=== PATIENT | male | born 1955 | race Caucasian/White ===

== ENCOUNTER → 2019-09-28 | Outpatient (CLI) | payer OTHER ==
--- NOTE | 2019-09-28 13:04 | RADIOLOGY REPORT (SQ) ---
EXAM DESCRIPTION: C SP 4 OR 5 VIEWS COMPLETED DATE/TIME: 09/28/2019 12:31 pm REASON FOR STUDY: NECK PAIN;LUMBAR BACK PAIN M54.5 LOW BACK PAIN COMPARISON: None. NUMBER OF VIEWS: Five views. TECHNIQUE: AP, lateral, obliques and odontoid radiographic images acquired of the cervical spine. LIMITATIONS: None. FINDINGS: MINERALIZATION: Normal. ALIGNMENT: Anatomic. VERTEBRAE: Vertebral bodies of normal height. DISCS: Minimal narrowing at C4-5, C5-6, and C6-7 with marginal osteophytes. FORAMINA: There is mild foraminal narrowing at C4-5 and C5-6 bilaterally. LATERAL AND POSTERIOR ELEMENTS: Hypertrophic facet changes are present bilaterally, right more than l eft. HARDWARE: None in the spine. SOFT TISSUES: No masses or calcifications. Lung apices clear. OTHER: No other significant finding. IMPRESSION: Degenerative disc disease, spondylosis, and facet arthropathy. TECHNICAL DOCUMENTATION: JOB ID: [id number] 2010 [employer]- All Rights Reserved Reading location - IP/workstation name: [email or web address]
--- NOTE | 2019-09-28 13:06 | RADIOLOGY REPORT (SQ) ---
EXAM DESCRIPTION: LUMBAR SPINE COMPLETE COMPLETED DATE/TIME: 09/28/2019 12:31 pm REASON FOR STUDY: NECK PAIN;LUMBAR BACK PAIN M54.5 LOW BACK PAIN COMPARISON: None. NUMBER OF VIEWS: Five views including obliques. TECHNIQUE: AP, lateral, oblique, and sacral radiographic images acquired of the lumbar spine. LIMITATIONS: None. FINDINGS: MINERALIZATION: Normal. SEGMENTATION: Normal. No transitional anatomy. ALIGNMENT: Normal. VERTEBRAE: Maintained height. No fracture or worrisome bone lesion. DISCS: Mild disc narrowing at L2-3, L4-5, and L5-S1. Small marginal osteophytes at L2-3. POSTERIOR ELEMENTS: Hypertrophic facet changes from L4-S1. HARDWARE: None in the spine. PARASPINAL SOFT TISSUES: Normal. PELVIS: Intact as visualized. No fractures or worrisome bone lesions. SI joints intact. OTHER: No other significant finding. IMPRESSION: Degenerative disc disease. Spondylosis. Facet arthropathy. TECHNICAL DOCUMENTATION: JOB ID: [id number] 2010 [employer]- All Rights Reserved Reading location - IP/workstation name: [email or web address]
== END ==
LOC: OD 12:04
PROVIDERS: ATTEND Nurse Practitioner Family
DX: M54.5 Low back pain (principal)
CPT/HCPCS: 72050; 72110

== ENCOUNTER 2020-05-22 08:54 | Emergency (ER) | payer OTHER ==
[2020-05-22] MEDS ORDERED: ADENOSINE INJ/PF 6 MG/2 ML SDV IV ONE (09:11)
[2020-05-22] MEDS ORDERED: METOPROLOL TARTRATE PF/INJ 5 MG/5 ML SDV IV ONE (09:16)
[2020-05-22] MEDS ORDERED: NORMAL SALINE 1000 ML 1,000 ML IV ONE (09:17)
[2020-05-22 09:41] LABS: ABSOLUTE LYMPHOCYTES (AUTO) 1.8 10^3/uL (0.5-4.7); ABSOLUTE MONOCYTES (AUTO) 0.6 10^3/uL (0.1-1.4); BASOPHILS % (AUTO) 0.4 % (0-2); EOSINOPHILS % (AUTO) 0.3 % (0-6); HEMOGLOBIN 17.8 g/dL (13.5-17.0); LYMPHOCYTES % (AUTO) 21.7 % (13-45); MEAN CORPUSCULAR HEMOGLOBIN 33.1 pg (27.0-33.4); MEAN CORPUSCULAR HGB CONC 36.4 g/dL (32.0-36.0); MEAN CORPUSCULAR VOLUME 91 fl (80-97); MONOCYTES % (AUTO) 6.8 % (3-13); PLATELET COUNT 152 10^3/uL (150-450); RED BLOOD COUNT 5.39 10^6/uL (4.35-5.55); RED CELL DISTRIBUTION WIDTH 13.5 % (11.5-14.0); SEGMENTED NEUTROPHILS % (AUTO) 70.8 % (42-78); TOTAL CELLS COUNTED % (AUTO) 100 %; WHITE BLOOD COUNT 8.5 10^3/uL (4.0-10.5)
[2020-05-22 10:20] LABS: ALBUMIN 4.6 g/dL (3.5-5.0); ALKALINE PHOSPHATASE 107 U/L (38-126); ANION GAP 16 (5-19); ASPARTATE AMINO TRANSFERASE 29 U/L (17-59); BILIRUBIN,DIRECT 0.1 mg/dL (0.0-0.4); BILIRUBIN,TOTAL 2.9 mg/dL (0.2-1.3); BLOOD UREA NITROGEN 18 mg/dL (7-20); CALCIUM 9.5 mg/dL (8.4-10.2); CARBON DIOXIDE 20 mmol/L (22-30); CHLORIDE 101 mmol/L (98-107); GLUCOSE 287 mg/dL (75-110); POTASSIUM 4.1 mmol/L (3.6-5.0); TOTAL PROTEIN 7.7 g/dL (6.3-8.2)
[2020-05-22 10:50] VITALS: BP 125/84
--- NOTE | 2020-05-22 10:55 | ER Document Report ---
ED General - General Chief Complaint: fast heart rate Stated Complaint: PALPITATIONS Time Seen by Provider: 05/22/20 09:13 Primary Care Provider: AMERICO SALVADOR FNP [Primary Care Provider] - Follow up as needed Mode of Arrival: Ambulatory Information source: Patient - [facility] Notes: Patient arrives complaint of palpitations. He states he was at a clinic today for the palpitations and when they did an EKG and saw his heart rate was elevated this and here to emergency department. He states these palpitations have been relatively constant for the last month. He has been having some mild shortness of breath. No pain. He states that they seem to be worse with exertion and better with rest. They have been constant and moderate in intensity. No vomiting or diarrhea. No cough cold or congestion. No previous history of cardiac disease. - Related Data Allergies/Adverse Reactions: codeine Allergy (Verified 05/22/20 09:43) Home Medications: lisinopril. metformin. atrovastatin. lorazepam Past Medical History - General Information source: Patient - Social History Smoking Status: Former Smoker Frequency of alcohol use: Occasional Drug Abuse: None Family History: Reviewed & Not Pertinent - Past Medical History Cardiac Medical History: Reports: Hx Hypercholesterolemia, Hx Hypertension Endocrine Medical History: Reports: Hx Diabetes Mellitus Type 2 Past Surgical History: Reports: Hx Orthopedic Surgery - knee, Hx Tonsillectomy Review of Systems - Review of Systems Constitutional: denies: Chills, Fever Cardiovascular: Palpitations. denies: Chest pain Respiratory: Short of breath. denies: Cough -: Yes All other systems reviewed and negative Physical Exam - Vital signs Vitals: Resp 20 05/22/20 09:12 Interpretation: Normal - General General appearance: Appears well, Alert - HEENT Head: Normocephalic, Atraumatic Eyes: Normal Pupils: PERRL - Respiratory Respiratory status: No respiratory distress Chest status: Nontender Breath sounds: Normal Chest palpation: Normal - Cardiovascular Rhythm: Regular, Tachycardia Heart sounds: Normal auscultation Murmur: No - Abdominal Inspection: Normal Distension: No distension Bowel sounds: Normal Tenderness: Nontender Organomegaly: No organomegaly - Back Back: Normal, Nontender - Extremities General upper extremity: Normal inspection, Nontender, Normal color, Normal ROM, Normal temperature General lower extremity: Normal inspection, Nontender, Normal color, Normal ROM, Normal temperature, Normal weight bearing. No: Vita's sign - Neurological Neuro grossly intact: Yes Cognition: Normal Orientation: AAOx4 Avant Coma Scale Eye Opening: Spontaneous Mehdi Coma Scale Verbal: Oriented Avant Coma Scale Motor: Obeys Commands Avant Coma Scale Total: 15 Speech: Normal Motor strength normal: LUE, RUE, LLE, RLE Sensory: Normal - Psychological Associated symptoms: Normal affect, Normal mood - Skin Skin Temperature: Warm Skin Moisture: Dry Skin Color: Normal Course - Re-evaluation Re-evalutation: 05/22/20 10:56 05/22/20 10:50 Patient presents in flutter but otherwise stable vital signs. Blood pressure was normal. Patient was relatively asymptomatic other than the palpitations. 1 dose of metoprolol converted the patient to a sinus rhythm. His blood pressure has remained stable since. I have called and discussed the case with the it infrastructure manager, Dr. Wilkerson. He will follow up the patient in the office. There is also noted that patient has hyperglycemia. He will be started on some Metformin and referred to primary care. Dr. Wilkerson is also requested that the patient be started on Eliquis. - Vital Signs Vital signs: Temp Pulse Resp BP Pulse Ox 15 156/83 H 97 05/22/20 09:13 05/22/20 09:13 05/22/20 09:13 - Laboratory Result Diagrams: 05/22/20 09:17 05/22/20 09:17 Laboratory results interpreted by me: 05/22/20 05/22/20 09:17 09:17 Hgb 17.8 H MCHC 36.4 H Sodium 136.8 L Carbon Dioxide 20 L Glucose 287 H Total Bilirubin 2.9 H ALT 55 H - Diagnostic Test Radiology reviewed: Image reviewed, Reports reviewed - EKG Interpretation by Me Rate: Tachycardia - 157 Rhythm: A.Flutter [place]/QRS: No: Right axis deviation, Left axis deviation Additional EKG results interpreted by me: 05/22/20 10:48 Repeat EKG was done at approximately 9:34 AM. The repeat EKG shows patient to have a sinus rhythm with some premature atrial beats. Patient's rate is 94. There is a change from the previous EKG that was done at 9:01 AM and that patient is no longer in a sustained flutter. Patient has a normal axis. Procedures - Additional Procedures Cardioversion/Defib Time performed: 09:01 Additional Procedures: Cardioversion/defib Notes: 05/22/20 10:56 Patient was chemically cardioverted with metoprolol. Discharge - Discharge Clinical Impression: Atrial flutter with rapid ventricular response, Hyperglycemia Condition: Stable Disposition: HOME, SELF-CARE Instructions: Beta Blockers ([facility]), Palpitations (Irregular or Rapid Heartrate) ([facility]) Additional Instructions: Do not take anymore Lisinopril Please follow up with your primary doctor as soon as possible. Prescriptions: Apixaban [Eliquis 5 mg Tablet] 5 mg PO BID 30 Days #50 tablet Metoprolol Tartrate [Lopressor 25 mg Tablet] 25 mg PO BID 30 Days #60 tab Forms: Return to Work Referrals: AMERICO SALVADOR FNP [Primary Care Provider] - Follow up in 3-5 days CHERRY WILKERSON MD [ACTIVE STAFF] - Follow up in 1 week (Dr. Wilkerson's office will call you)
--- NOTE | 2020-05-22 17:44 | EKG REPORT ---
SEVERITY:- ABNORMAL ECG - SINUS rHYTHM FREQUENT ATRIAL PREMATURE COMPLEXES CONSIDER ANTERIOR INFARCT ST ELEVATION SUGGESTS PERICARDITIS : Confirmed by: Mercedez Sauer 22-May-2020 17:44:08
--- NOTE | 2020-05-22 17:45 | EKG REPORT ---
SEVERITY:- ABNORMAL ECG - SUPRAVENTRICULAR TACHYCARDIA CONSIDER A FLUTTER WITH 2;1 CONDUCTION LEFT ANTERIOR FASCICULAR BLOCK MINIMAL ST DEPRESSION, INFERIOR LEADS : Confirmed by: Mercedez Sauer 22-May-2020 17:44:59
--- OUTSIDE RECORDS SUMMARY | 2020-05-23 18:27 | XMS REPORT ---
:1955 [facility] [address] [place] [id number] Care Team Providers Name Role Phone Chiki Carvajal Attending Clinician Unavailable Allergies, Adverse Reactions, Alerts This patient has no known allergies or adverse reactions. Medications This patient has no known medications. Problems This patient has no known problems. Procedures Procedure Date / Time Performed Performing Clinician Devic e OFFICE/OUTPATIENT VISIT EST 2020-01-02 09:00:00 OFFICE/OUTPATIENT VISIT NEW 2019-09-28 10:30:00 Results Test Description Test Time Test Comments Text Results Atomic Results Result Comments CBC (INCLUDES DIFF/PLT) 2020-01-02 10:22:00 Test Item Value Reference Range Comments ABSOLUTE BASOPHILS (test code = 75930014) 37 cells/uL 0-200 MPV (test code = 35015032) 9.7 fL 7.5-12.5 EOSINOPHILS (test code = 00905579) 0.5 % ABSOLUTE EOSINOPHILS (test code = 66608529) 31 cells/uL 15-5 00 RED BLOOD CELL COUNT (test code = 44267110) 4.96 Million/uL 4.20 -5.80 ABSOLUTE NEUTROPHILS (test code = 37497601) 4104 cells/uL 1500 -7800 PLATELET COUNT (test code = 62242176) 160 Thousand/uL 140-400 RDW (test code = 84575204) 13.3 % 11.0-15.0 MCV (test code = 79264502) 94.2 fL 80.0-100.0 MCHC (test code = 45288969) 35.5 g/dL 32.0-36.0 ABSOLUTE MONOCYTES (test code = 02633793) 477 cells/uL 200-95 0 WHITE BLOOD CELL COUNT (test code = 24505807) 6.2 Thousand/uL 3. 8-10.8 BASOPHILS (test code = 98038868) 0.6 % HEMATOCRIT (test code = 70070469) 46.7 % 38.5-50.0 ABSOLUTE LYMPHOCYTES (test code = 59081437) 1550 cells/uL 850- 3900 MONOCYTES (test code = 77967505) 7.7 % LYMPHOCYTES (test code = 12245937) 25.0 % MCH (test code = 48825348) 33.5 pg 27.0-33.0 NEUTROPHILS (test code = 97971473) 66.2 % HEMOGLOBIN (test code = 37175104) 16.6 g/dL 13.2-17.1 Hemoglobin A1C\S\2020-01-02 09:00:00 Test Item Value Reference Range Comments HgbA1C, Fingerstick (test code = 4548-4) 7.4 % 4-5.6 COMPREHENSIVE METABOLIC [id number] 08:39:00 Test Item Value Reference Range Comments ALKALINE PHOSPHATASE (test code = 101 U/L 35-144 27470943) UREA NITROGEN (BUN) (test code = 17 mg/dL 7-25 10636745) CHLORIDE (test code = 65191152) 99 mmol/L 98-110 ALT (test code = 93463232) 26 U/L 9-46 GLOBULIN (test code = 18138786) 2.4 g/dL (calc) 1.9-3.7 ALBUMIN/GLOBULIN RATIO (test code = 1.8 (calc) 1.0-2.5 75537340) CREATININE (test code = 87150238) 0.98 mg/dL 0.70-1.25 CARBON DIOXIDE (test code = 47068973) 25 mmol/L 20-32 BILIRUBIN, TOTAL (test code = 2.3 mg/dL 0.2-1.2 37983667) eGFR (test code = 93 mL/min/1.73m2 > OR = 60 10838148) GLUCOSE (test code = 07102922) 320 mg/dL 65-99 CALCIUM (test code = 43399761) 9.6 mg/dL 8.6-10.3 eGFR NON-AFR. YEMENI (test code = 81 mL/min/1.73m2 > OR = 60 58697401) ALBUMIN (test code = 65078476) 4.2 g/dL 3.6-5.1 PROTEIN, TOTAL (test code = 66891108) 6.6 g/dL 6.1-8.1 POTASSIUM (test code = 40676637) 3.8 mmol/L 3.5-5.3 AST (test code = 13245382) 12 U/L 10-35 SODIUM (test code = 52932105) 134 mmol/L 135-146 BUN/CREATININE RATIO (test code = NOT APPLICABLE (calc) 6-22 32221195) LIPID PANEL, [id number] 08:39:00 Test Item Value Reference Range Comments CHOL/HDLC RATIO (test code = 68295272) 5.4 (calc) <5.0 HDL CHOLESTEROL (test code = 10234368) 32 mg/dL > OR = 40 NON HDL CHOLESTEROL (test code = 34323763) 140 mg/dL (calc) <130 CHOLESTEROL, TOTAL (test code = 01582200) 172 mg/dL <200 TRIGLYCERIDES (test code = 54308384) 531 mg/dL <150 TSH W/REFLEX TO [id number] 08:39:001.30ALBUMIN, RANDOM URINE W/O CREATININE 2019-10-02 08:39:00 Test Item Value Reference Range Comments ALBUMIN, URINE (test code = 62205517) 0.8 mg/dL 30180782 (test code = 85462354) See Below CBC (INCLUDES DIFF/PLT)2019-10-02 08:39:00 Test Item Value Reference Range Comments ABSOLUTE MONOCYTES (test code = 19619691) 477 cells/uL 200-95 0 ABSOLUTE NEUTROPHILS (test code = 98377769) 4204 cells/uL 1500 -7800 MCHC (test code = 85663106) 35.5 g/dL 32.0-36.0 LYMPHOCYTES (test code = 08257345) 23.1 % MCH (test code = 35711868) 33.4 pg 27.0-33.0 RED BLOOD CELL COUNT (test code = 96198232) 5.15 Million/uL 4.20 -5.80 MPV (test code = 84569067) 10.1 fL 7.5-12.5 ABSOLUTE EOSINOPHILS (test code = 31380368) 37 cells/uL 15-5 00 HEMATOCRIT (test code = 31042793) 48.4 % 38.5-50.0 BASOPHILS (test code = 49504704) 0.8 % ABSOLUTE BASOPHILS (test code = 98494945) 50 cells/uL 0-200 NEUTROPHILS (test code = 71651008) 67.8 % ABSOLUTE LYMPHOCYTES (test code = 86245597) 1432 cells/uL 850- 3900 HEMOGLOBIN (test code = 00122340) 17.2 g/dL 13.2-17.1 MCV (test code = 43984329) 94.0 fL 80.0-100.0 EOSINOPHILS (test code = 40520721) 0.6 % MONOCYTES (test code = 13694351) 7.7 % RDW (test code = 90832041) 12.7 % 11.0-15.0 WHITE BLOOD CELL COUNT (test code = 6.2 Thousand/uL 3.8-10.8 69919639) PLATELET COUNT (test code = 10058172) 146 Thousand/uL 140-400 Hemoglobin A1C\S\2019-09-28 10:30:00 Test Item Value Reference Range Comments HgbA1C, Fingerstick (test code = 4548-4) 8.8 % 4-5.6 Assessments Condition Name Status Diagnosis Date Treating Clinici an Essential (primary) hypertension Active Type 2 diabetes mellitus with other Active specified complication Anxiety disorder, unspecified Active Major depressive disorder, single episode, Active mild Pain in right foot Active Pain in left foot Active Cervicalgia Active Low back pain Active Encounters Start End Encounter Admission Attending Care Care Encounter Date/Time Date/Time Type Type Clinicians Facility Department ID 2020-01-02 2020-01-02 Outpatient [facility] [id number] 09:00:00 09:00:00 Chiki Villagomez???s [id number] and [id number] Multispecialty [id number] Clini 2019-09-28 2019-09-28 Out[facility] [id number] 10:30:00 10:30:00 Chiki Children [id number] s [id number] and [id number] Multispecialty Clinic, Social History This patient has no known social history. Vital Signs This patient has no known vital signs.
== END 2020-05-22 11:15 | disposition home or self-care (01) ==
LOC: ER 08:54
DX: I48.92 Unspecified atrial flutter (principal); E11.65 Type 2 diabetes mellitus with hyperglycemia; R06.02 Shortness of breath; R00.0 Tachycardia, unspecified; E78.00 Pure hypercholesterolemia, unspecified; I10 Essential (primary) hypertension; Z79.899 Other long term (current) drug therapy; Z79.84 Long term (current) use of oral hypoglycemic drugs; Z87.891 Personal history of nicotine dependence; Z88.6 Allergy status to analgesic agent; Z88.5 Allergy status to narcotic agent
CPT/HCPCS: 93005; 99284; 96361; 96374; 36415; 83735; 85025; 80053; 84484; 93010; J3490; J7030

== ENCOUNTER → 2020-08-05 | Outpatient (CLI) | payer OTHER ==
--- NOTE | 2020-08-05 16:37 | XCELERA REPORT ---
[address] [address] Transthoracic Echocardiogram Report Name: LEANDER JOSEPH Age: 65 yrs Gender: Male : 1955 Patient Status: Outpatient Patient Location: Study Date: 08/05/2020 11:20 AM History: Atrial flutter Height: 68 in Weight: 250 lb BSA: 2.2 m2 Procedure: A complete two-dimensional transthoracic echocardiogram was performed (2D, M-mode, spectral and color flow Doppler). The study was technically adequate with some images being suboptimal in quality. Reason For Study: ATRIAL FLUTTER Previous Evaluation: No previous studies were available. History: Atrial flutter. Ordering Physician: AMERICO SALVADOR Performed By: Jay Chew Interpretation Summary Left ventricular systolic function is normal. The Ejection Fraction estimate is 55-60% The right ventricle is normal in size and function. There is no mitral regurgitation noted. There is no aortic valve stenosis There is a trace or physiologic amount of tricuspid regurgitation There is no pericardial effusion. The aortic root is mildly dilated MMode/2D Measurements & Calculations RVDd: 2.9 cm LVIDd: 4.3 cm FS: 34.7 % Ao root diam: 3.9 cm IVSd: 0.96 cm LVIDs: 2.8 cm EDV(Teich): 83.9 ml Ao root area: 11.9 cm2 LVPWd: 1.3 cm ESV(Teich): 30.0 ml LA dimension: 3.5 cm EF(Teich): 64.2 % Doppler Measurements & Calculations MV E max kolton: MV P1/2t max kolton: Ao V2 max: LV V1 max P.5 cm/sec 75.4 cm/sec 105.2 cm/sec 3.8 mmHg MV A max kolton: MV P1/2t: 78.3 msec Ao max P.4 mmHg LV V1 max: 62.7 cm/sec MVA(P1/2t): 2.8 cm2 97.7 cm/sec MV E/A: 1.3 MV dec slope: 282.2 cm/sec2 MV dec time: 0.16 sec PA V2 max: PI end-d kolton: MV P1/2t-pr_phl: 85.4 cm/sec 101.8 cm/sec 78.3 msec PA max P.9 mmHg Left Ventricle The left ventricle is normal in size. There is mild to moderate concentric left ventricular hypertrophy. Left ventricular systolic function is normal. The Ejection Fraction estimate is 55-60%. Spectral Doppler of the mitral valve is reversed, with an E/A wave ratio < 1.0. Doppler measurements suggest pseudonormalized left ventricular relaxation, which is associated with grade II/IV or mild to moderate diastolic dysfunction. Right Ventricle The right ventricle is normal in size and function. Atria The right atrium is normal. The left atrium is borderline dilated. Mitral Valve The mitral valve is grossly normal. There is no evidence of mitral valve prolapse. There is no mitral valve stenosis. There is no mitral regurgitation noted. Aortic Valve The aortic valve opens well. The aortic valve is not well visualized secondary to technical limitations. There is no aortic valve stenosis. No aortic regurgitation is present. Tricuspid Valve The tricuspid valve is normal in structure and function. There is a trace or physiologic amount of tricuspid regurgitation. Tricuspid regurgitation jet envelope not well defined to measure RV systolic pressure accurately. Pulmonic Valve The pulmonic valve is not well visualized. There is no pulmonic valvular stenosis. There is a mild amount of pulmonic regurgitation. Great Vessels The aortic root is mildly dilated. The inferior vena cava was not visualized. Effusions There is no pericardial effusion. : AMERICO SALVADOR Anil
== END ==
LOC: SP 10:40
PROVIDERS: ATTEND Nurse Practitioner Family
DX: I48.3 Typical atrial flutter (principal)
CPT/HCPCS: 93306